=== PATIENT | male | born 1990 | race Caucasian/White ===

== ENCOUNTER 2017-01-24 12:48 | Emergency (ER) | payer SELFPAY ==
[~2017-01-24] VITALS: Ht 170.1 cm; Wt 104.5 kg
[2017-01-24 12:51] VITALS: BP 176/124
== END 2017-01-24 13:56 | disposition home or self-care (01) ==
LOC: ED 12:48
DX: R51 Headache (principal)

== ENCOUNTER → 2017-01-24 | Outpatient (CLI) | payer SELFPAY ==
[~2017-01-24] MED LIST: ANAPROX DS550 MG PO; BACTRIM DS 8001 TA1 PO; CLARITIN10 MG PO; EXCEDRIN 250 MG1 TA1 PO; FLEXERIL10 MG PO; MOTRIN800 MG PO; TRAMADOL HCL50 MG PO; VICODIN 5/500 505 MG PO; ZITHROMAX Z PA250 MG PO
== END | disposition home or self-care (01) ==
LOC: RESCLI 14:29
DX: I10 Essential (primary) hypertension (principal); D49.6 Neoplasm of unspecified behavior of brain; F17.200 Nicotine dependence, unspecified, uncomplicated; Q85.8 Other phakomatoses, not elsewhere classified; Z71.6 Tobacco abuse counseling

== ENCOUNTER → 2017-02-07 | Outpatient (CLI) | payer MEDICAID | END | disposition home or self-care (01) | LOC: RESCLI 02:11 → LAB 02:11 → RESCLI 11:46 | DX: I10 Essential (primary) hypertension (principal) ==

== ENCOUNTER → 2017-02-13 | Outpatient (CLI) | payer MEDICAID ==
[2017-02-14 18:08] LABS: CREATININE, RANDOM URINE 134.9 mg/dL (Not Estab.)
[2017-02-16 11:04] LABS: METANEPH-CREAT RATIO 0.3 (0.0-1.0)
== END | disposition home or self-care (01) ==
LOC: LAB 01:25
PROVIDERS: Internal Medicine
DX: I10 Essential (primary) hypertension (principal)

== ENCOUNTER → 2017-02-21 | Outpatient (CLI) | payer MEDICAID | END | disposition home or self-care (01) | LOC: RESCLI 02:57 | DX: Z09 Encounter for follow-up examination after completed treatment for conditions other than malignant neoplasm (principal); I10 Essential (primary) hypertension; D49.6 Neoplasm of unspecified behavior of brain; J45.20 Mild intermittent asthma, uncomplicated; R00.0 Tachycardia, unspecified; K21.9 Gastro-esophageal reflux disease without esophagitis; E88.81 Metabolic syndrome and other insulin resistance; E66.9 Obesity, unspecified; K76.0 Fatty (change of) liver, not elsewhere classified; K85.90 Acute pancreatitis without necrosis or infection, unspecified; F17.210 Nicotine dependence, cigarettes, uncomplicated ==

== ENCOUNTER 2017-03-13 16:44 | Inpatient (IN) | payer OTHER ==
[~2017-03-13] VITALS: Ht 170.2 cm; Wt 105.9 kg
--- NOTE | ~2017-03-13 | EKG ---
[place], [place] ELECTROCARDIOGRAM REPORT NAME: MAURILIO BEST UNIT #: [id number] ROOM: 521 DOCTOR: SERENE CAMARENA MD BIRTHDATE: [birth year] DOS: 03/13/2017 TIME: 19:02:46. RATE AND RHYTHM: Sinus tachycardia at 107 beats per minute. WY interval 150 milliseconds, QRS duration 93 milliseconds, corrected QT interval 449 milliseconds, QRS axis is 2. IMPRESSION: 1. Sinus tachycardia. 2. Probable left atrial enlargement. 3. Probable left ventricular hypertrophy. 4. This is abnormal EKG. 5. The patient does have underlying ____ disease. SERENE CAMARENA MD CM:EKGRPT:ELECTROCARDIOGRAM REPORT [id number] SERENE CAMARENA MD
[~2017-03-13 16:44] MED LIST changes: -ANBESOL9 G1 T; -DEXAMETHASONE4 MG PO; -HYDR25T PO; -LEVEMIR100 UNIT/1 SQ; -LISINOPRIL10 M1 PO; -NOVOLOG10 ML SC; -NTS1 EACH TD; -OMEPRAZOLE D/R20 MG PO; -PERCOCET 5-3251 EACH PO
[2017-03-13 16:45] VITALS: BP 136/80
[2017-03-13 17:30] LABS: HEMATOCRIT 39.3 % (42.0-52.0); HEMOGLOBIN 14.3 g/dl (14.0-18.0); MEAN CELL VOLUME 83.6 fl (80.0-94.0); MEAN CORPUSCULAR HGB 30.4 pg (27.0-31.0); MEAN CORPUSCULAR HGB CONC 36.4 g/dl (33.0-37.0); MEAN PLATELET VOLUME 9.9 fl (9.6-12.3); PLATELET COUNT AUTOMATED 283 10*3/uL (130-400); WHITE BLOOD COUNT 16.3 10*3/uL (4.8-10.8)
[2017-03-13 17:39] LABS: ACT PARTIAL THROMBO TIME 20.5 SECONDS (20.8-31.5); INTERNATIONAL NORM RATIO 0.9 (2.0-3.5)
[2017-03-13 17:45] LABS: ALBUMIN 3.3 gm/dl (3.1-4.5); ALKALINE PHOSPHATASE 110 U/L (45-117); BUN 22 mg/dl (7-24); CHLORIDE 85 mmol/L (98-107); CREATININE 1.18 mg/dL (0.70-1.30); POTASSIUM 3.4 mmol/L (3.5-5.1); SGOT/AST 23 IU/L (3-35); SODIUM 124 mmol/L (136-145); TOTAL PROTEIN 7.3 gm/dL (6.4-8.2)
[2017-03-13 17:51] LABS: LIPASE 182 U/L (73-393); SGPT/ALT 62 U/L (12-78)
[2017-03-13 18:18] LABS: ATYPICAL LYMPHS 1 % (0-0); PLATELET SUFFICIENCY NORMAL (NORMAL); TOTAL CELLS COUNTED 100 #CELLS
--- NOTE | 2017-03-13 19:38 | NUR ---
PATIENT GIVEN PAIN MEDS STATES FIRST ROUND OF PAIIN MEDS HELPED BUT PAIN HAS RETURNED, WILL REEVAULATED UP RETURN FROM CT
--- NOTE | 2017-03-13 20:13 | NUR ---
REPEAT CRITICAL RESULT GIVEN TO DR HOLGUIN
[2017-03-13 20:14] LABS: BILIRUBIN NEGATIVE (NEGATIVE); BLOOD NEGATIVE (NEGATIVE); CLARITY CLEAR (CLEAR); COLOR YELLOW (YELLOW); GLUCOSE 3+ (NEGATIVE); KETONE NEGATIVE (NEGATIVE); LEUKO ESTERASE NEGATIVE (NEGATIVE); NITRITE NEGATIVE (NEGATIVE); PH 5.5 (5.0-9.0); SPECIFIC GRAVITY <= 1.005 (1.005-1.030); UROBILINOGEN 0.2 E.U./dl (0.2-1.0)
[2017-03-13 20:21] LABS: BACTERIA TRACE; WBC 0-2 wbc/hpf (0-5)
--- NOTE | 2017-03-13 21:22 | NUR ---
BGM AT 237, NOTIFIED DR RICHARDS, VO TO PUT REST OF INSULIN R ON HOLD 88.6 LEFT IN BAG
[2017-03-13 21:44] VITALS: BP 142/72
--- NOTE | 2017-03-13 22:29 | NUR ---
CRITICAL LAB LACTIC ACID OF 4.3 DR. Erick RODRIGUEZ NOTIFIED AT THIS TIME.
[2017-03-13 22:30] VITALS: BP 159/90
--- NOTE | 2017-03-13 22:30 | NUR ---
A 26, admitted to 5E, under the services of Dr. MIUGE CHARLES,[facility] with a diagnosis of UNCONTROLLED DM, ABDOMINAL PAIN. Chief complaint is ABDOMINAL PAIN. Patient arrived via stretcher from ER. Monitor applied. Initial assessment completed. Vital signs taken and recorded. notified of admission to the unit. Orders received. See assessment for past medical history, medications and allergies. Patient and/or family oriented to unit. [address] visitation policy reviewed. Clothing/patient valuable form completed. ESTRELLA SELLERS
[2017-03-13] MEDS ORDERED: HYDR25T PO (22:46)
[2017-03-13] MEDS ORDERED: LISINOPRIL10 M1 PO (22:46)
[2017-03-13] MEDS ORDERED: PERCOCET 5-3251 EACH PO (22:47)
[2017-03-13] MEDS ORDERED: DEXAMETHASONE4 MG PO (22:48)
[2017-03-13] MEDS ORDERED: OMEPRAZOLE D/R20 MG PO (22:49)
[2017-03-13] MEDS ORDERED: NOVOLOG10 ML SC (22:50)
[2017-03-13] MEDS ORDERED: LEVEMIR100 UNIT/1 SQ (22:51)
--- NOTE | 2017-03-13 22:52 | NUR ---
DR. RODRIGUEZ NOTIFIED THAT PATIENT IS HAVING 10/10 HEAD PAIN. NOTIFIED THAT PATIENT TAKES TWO TABLETS OF PERCOCET EVERY 4 HOURS AT HOME. MED REC HAS BEEN UPDATED. DR. RODRIGUEZ STATES SHE IS PUTTING IN ORDERS NOW.
[2017-03-13] MEDS ORDERED: NTS1 EACH TD (22:53)
--- NOTE | 2017-03-14 00:11 | NUR ---
DR. RODRIGUEZ NOTIFIED OF CRITICAL LACTIC ACID.
[2017-03-14 00:25] LABS: BUN 16 mg/dl (7-24); CHLORIDE 93 mmol/L (98-107); CREATININE 0.82 mg/dL (0.70-1.30); POTASSIUM 3.4 mmol/L (3.5-5.1); SODIUM 131 mmol/L (136-145)
--- NOTE | 2017-03-14 00:33 | NUR ---
C/O 10/10 HEAD, MOUTH AND TONGUE PAIN. MEDICATED WITH PRN NORCO ORDERED AND PER PATIENT REQUEST.
--- NOTE | 2017-03-14 01:23 | NUR ---
CONTINUES TO HAVE 10/10 HEAD, MOUTH AND TONGUE PAIN. NORCO INEFFECTIVE. MEDICATED WITH PRN PERCOCET ORDERED AND PER PATIENT REQUEST.
--- NOTE | 2017-03-14 02:20 | NUR ---
PATIENT ASLEEP. NO SIGNS OF PAIN. PERCOCET EFFECTIVE.
--- NOTE | 2017-03-14 02:39 | NUR ---
DR. RODRIGUEZ NOTIFIED OF CRITICAL LACTIC ACID.
[2017-03-14 04:28] LABS: HEMATOCRIT 34.5 % (42.0-52.0); HEMOGLOBIN 12.4 g/dl (14.0-18.0); MEAN CELL VOLUME 84.6 fl (80.0-94.0); MEAN CORPUSCULAR HGB 30.4 pg (27.0-31.0); MEAN CORPUSCULAR HGB CONC 35.9 g/dl (33.0-37.0); MEAN PLATELET VOLUME 9.6 fl (9.6-12.3); PLATELET COUNT AUTOMATED 224 10*3/uL (130-400); RED BLOOD COUNT 4.08 10*6/uL (4.50-5.90); WHITE BLOOD COUNT 13.8 10*3/uL (4.8-10.8)
--- NOTE | 2017-03-14 04:32 | NUR ---
DR. RODRIGUEZ NOTIFIED OF CRITICAL LACTIC ACID.
[2017-03-14 04:40] LABS: BUN 15 mg/dl (7-24); CHLORIDE 96 mmol/L (98-107); CREATININE 0.81 mg/dL (0.70-1.30); POTASSIUM 3.2 mmol/L (3.5-5.1); SODIUM 133 mmol/L (136-145)
[2017-03-14 04:44] LABS: PHOSPHOROUS 1.8 mg/dL (2.5-4.9)
--- NOTE | 2017-03-14 04:44 | NUR ---
MS CONTIN GIVEN ORDERED.
[2017-03-14 04:49] LABS: THYROID STIM HORMONE (HS) 0.609 uIU/ml (0.358-4.75)
[2017-03-14 05:00] LABS: TOTAL CELLS COUNTED 100 #CELLS
[2017-03-14 05:01] LABS: MICROCYTOSIS SLIGHT; PLATELET SUFFICIENCY NORMAL (NORMAL)
--- NOTE | 2017-03-14 05:44 | NUR ---
PATIENT ASLEEP. NO SIGNS OF PAIN. MS CONTIN EFFECTIVE.
[2017-03-14 06:31] LABS: VITAMIN D, 25-HYDROXY 9.4 ng/mL (30-100)
--- NOTE | 2017-03-14 06:37 | NUR ---
DR. RODRIGUEZ NOTIFIED OF CRITICAL LACTIC ACID 3.8
[2017-03-14 08:00] VITALS: BP 152/86
--- NOTE | 2017-03-14 08:00 | NUR ---
Cotton Breeder in to talk to patient. Patient states lives at HOME with GRANDMOTHER AND HIS CHILDREN. There are 4 steps in the home. Physician: DR CAMARENA [facility] [place] Home health services: NONE Patient's level of ADLs: INDEPENDENT Patient has working utilities: YES DME: NONE Follow-up physician's appointment after d/c: PREFERS TO MAKE HIS OWN APPT Does patient want to access PORTAL?: Discharge plan HOME. ALON HANEY
--- NOTE | 2017-03-14 08:05 | NUR ---
PERCOCET GIVEN FOR C/O HEADACHE OF 12/15. WILL CONT TO MONITOR. CALL LIGHT IN REACH.
--- NOTE | 2017-03-14 09:00 | NUR ---
INSULIN DRIP DECREASED PER POLICY DUE TO BS 112.
--- NOTE | 2017-03-14 09:05 | NUR ---
PERCOCET EFF FOR PAIN PER PT. WILL CONT TO MONITOR. CALL LIGHT IN REACH.
--- NOTE | 2017-03-14 09:12 | NUR ---
NOTIFIED DR MELVIN OF LACTIC ACID 3.2 AND NOTIFIED HIM OF RECENT BS RESULTS NEW ORDERS RECEIVED.
--- NOTE | 2017-03-14 10:59 | NUR ---
LACTIC ACID 2.3 DR MELVIN AWARE AND ASKED IF PT COULD TAKE SHOWER PER HIS REQUEST AND HE STATED NOT RIGHT NOW.
[2017-03-14 12:25] LABS: BUN 14 mg/dl (7-24); CHLORIDE 103 mmol/L (98-107); CREATININE 0.57 mg/dL (0.70-1.30); POTASSIUM 3.8 mmol/L (3.5-5.1); SODIUM 137 mmol/L (136-145)
--- NOTE | 2017-03-14 13:04 | NUR ---
PT OFF FLOOR FOR MRI WILL OBTAIN BS UPON RETURN.
--- NOTE | 2017-03-14 13:04 | NUR ---
PT WENT OFF FLOOR FOR MRI. DR MELVIN WAS NOTIFIED AND HE STATED THAT IT WAS OK FOR PT TO COME OFF OF ALL FLUIDS WHILE GETTING MRI.
--- NOTE | 2017-03-14 13:55 | NUR ---
PT RETURNED FROM MRI.
--- NOTE | 2017-03-14 14:00 | NUR ---
PT OFF FLOOR FOR MRI. BS THIS HOUR NOT OBTAINED. WILL OBTAIN UPON RETURN.
--- NOTE | 2017-03-14 14:09 | NUR ---
PERCOCET GIVEN FOR C/O HEADACHE OF 12/15. ALSO INSULIN DRIP INCREASED TO 16UNITS/HR PER ORDERS DUE TO BS 229 AFTER RETURNING FROM MRI.
--- NOTE | 2017-03-14 15:09 | NUR ---
PERCOCET EFF AT THIS TIME FOR C/O PAIN. WILL CONT TO MONITOR. CALL LIGHT IN REACH.
[2017-03-14 16:00] VITALS: BP 153/71
--- NOTE | 2017-03-14 16:23 | NUR ---
PT NONCOMPLIANT WITH 1800ADA DIET. FAMILY BRINGING IN FOOD FROM OUTSIDE.
[2017-03-14 20:00] VITALS: BP 145/80
--- NOTE | 2017-03-14 20:16 | NUR ---
SPOKE TO DR.ALEX CASANOVA AT THIS TIME REGARDING PATIENT'S LEVEMIR SCHEDULED FOR 0. DISCUSSED CURRENT INSULIN GTT RUNNING AT 22 UNITS PER HOUR AND BSG AT 2000 OF 248. PER , OKAY TO GIVE 40 UNITS OF LEVEMIR SCHEDULED. INSTRUCTED TO CONTINUE TO MONITOR BLOOD GLUCOSE Q1H.
--- NOTE | 2017-03-14 20:30 | NUR ---
PT MEDICATED WITH PO PERCOCET PER PRN ORDER FOR C/O HEADACHE R/T BRAIN TUMOR AND ABDOMINAL/SIDE PAIN 10/15. WILL MONITOR EFFECTIVENESS. CALL LIGHT LEFT IN REACH.
--- NOTE | 2017-03-14 21:16 | NUR ---
EARLIER MEDICATION EFFECTIVE PER PATIENT. WILL CONTINUE TO MONITOR. CALL LIGHT LEFT IN REACH.
--- NOTE | 2017-03-14 21:45 | NUR ---
PATIENT CLAIMING HE HAD SOME BLOOD IN STOO. DESCRIBES IT A DARKER RED, BUT NOT BROWN OR BLACK. MADE AWARE OF THIS. NO NEW ORDERS RECEIVED AT THIS TIME. INSTRUCTED TO MONITOR PATIENT FOR ANY FURTHER S/S OF ACTIVE BLEEDING.
--- NOTE | 2017-03-14 22:08 | NUR ---
PATIENT'S BSG 163 AT THIS TIME. RATE CONTINUED AT 23 UNITS PER HOUR. D5 1/2 NS ALSO RESTARTED AT 100 CC/HR INTO IV SITE IN LAC. SQ LEVEMIR ADMINISTERED PER 'S REQUEST.
[2017-03-15] VITALS: BP 138/81
--- NOTE | 2017-03-15 01:57 | NUR ---
PATIENT'S BSG WAS 84. INSULIN GTT DISCONNECTED AT THIS TIME. CALLED REGARDING CURRENT BSG. INSTRUCTED TO D/C INSULIN GTT FOR NOW AND TO RESUME SLIDING SCALE. BSG TO BE RECHECKED IN ONE HOUR.
--- NOTE | 2017-03-15 06:50 | NUR ---
D5 1/2 NS PUT ON HOLD AT THIS TIME DUE TO BSG 285.
[2017-03-15 06:56] LABS: HEMATOCRIT 37.3 % (42.0-52.0); HEMOGLOBIN 13.2 g/dl (14.0-18.0); MEAN CELL VOLUME 86.7 fl (80.0-94.0); MEAN CORPUSCULAR HGB 30.7 pg (27.0-31.0); MEAN CORPUSCULAR HGB CONC 35.4 g/dl (33.0-37.0); MEAN PLATELET VOLUME 9.7 fl (9.6-12.3); PLATELET COUNT AUTOMATED 228 10*3/uL (130-400); RED CELL DISTRI WIDTH 13.7 % (0-14.5); WHITE BLOOD COUNT 20.6 10*3/uL (4.8-10.8)
[2017-03-15 07:17] LABS: PLATELET SUFFICIENCY NORMAL (NORMAL); TOTAL CELLS COUNTED 100 #CELLS
[2017-03-15 07:30] LABS: BUN 15 mg/dl (7-24); CHLORIDE 95 mmol/L (98-107); POTASSIUM 4.2 mmol/L (3.5-5.1); SODIUM 132 mmol/L (136-145)
[2017-03-15 07:32] LABS: CREATININE 0.82 mg/dL (0.70-1.30); PHOSPHOROUS 3.4 mg/dL (2.5-4.9)
[2017-03-15 08:00] VITALS: BP 146/88
--- NOTE | 2017-03-15 08:40 | NUR ---
PATIENT MEDICATED WITH PERCOCET AT THIS TIME PER ORDER AND FOR COMPLAINTS OF HEADACHE 01/15. WILL MONITOR.
--- NOTE | 2017-03-15 09:30 | NUR ---
PER PATIENT, MEDICATION HAS BEEN EFFECTIVE. NO FURTHER COMPLAINTS.
[2017-03-15] MEDS ORDERED: ANBESOL9 G1 T (11:55)
[2017-03-15 12:00] VITALS: BP 140/70
--- NOTE | 2017-03-15 13:15 | NUR ---
Discharge instructions reviewed with patient/family. Patient receptive and verbalizes understanding. Follow-up care arranged. Written instructions given to patient/family. HEPLOCKS REMOVED. PATIENT AMBULATORY OFF FLOOR WITH & GRANDMOTHER. YOVANA COMBS
== END 2017-03-15 13:15 | disposition home or self-care (01) | DRG 699 ==
LOC: ED 16:44 → 5E 21:25 → EDHOLD 21:25 → 5E 21:36
PROVIDERS: Emergency Medicine; Internal Medicine; ADMIT Internal Medicine
DX: N28.89 Other specified disorders of kidney and ureter (principal); K86.2 Cyst of pancreas; R65.10 Systemic inflammatory response syndrome (SIRS) of non-infectious origin without acute organ dysfunction; E83.39 Other disorders of phosphorus metabolism; E09.65 Drug or chemical induced diabetes mellitus with hyperglycemia; E44.1 Mild protein-calorie malnutrition; E87.8 Other disorders of electrolyte and fluid balance, not elsewhere classified; E87.1 Hypo-osmolality and hyponatremia; Q85.8 Other phakomatoses, not elsewhere classified; E83.41 Hypermagnesemia; D49.6 Neoplasm of unspecified behavior of brain; T38.0X5A Adverse effect of glucocorticoids and synthetic analogues, initial encounter; J45.909 Unspecified asthma, uncomplicated; K76.0 Fatty (change of) liver, not elsewhere classified; D64.9 Anemia, unspecified; K14.0 Glossitis; R81 Glycosuria; R00.0 Tachycardia, unspecified; D72.825 Bandemia; E87.6 Hypokalemia; G44.89 Other headache syndrome; I10 Essential (primary) hypertension; F17.200 Nicotine dependence, unspecified, uncomplicated; Z79.899 Other long term (current) drug therapy; Z82.49 Family history of ischemic heart disease and other diseases of the circulatory system; Z84.89 Family history of other specified conditions; Z79.4 Long term (current) use of insulin; Z68.36 Body mass index [BMI] 36.0-36.9, adult; Y92.89 Other specified places as the place of occurrence of the external cause

== ENCOUNTER → 2017-03-13 | Outpatient (CLI) | payer OTHER ==
[~2017-03-13] MED LIST changes: +ANBESOL9 G1 T; +DEXAMETHASONE4 MG PO; +HYDR25T PO; +LEVEMIR100 UNIT/1 SQ; +LISINOPRIL10 M1 PO; +NOVOLOG10 ML SC; +NTS1 EACH TD; +OMEPRAZOLE D/R20 MG PO; +PERCOCET 5-3251 EACH PO
== END | disposition home or self-care (01) ==
LOC: RESCLI 01:55
DX: D49.6 Neoplasm of unspecified behavior of brain (principal); I10 Essential (primary) hypertension; J45.20 Mild intermittent asthma, uncomplicated; R00.0 Tachycardia, unspecified; K21.9 Gastro-esophageal reflux disease without esophagitis; E88.81 Metabolic syndrome and other insulin resistance; E66.9 Obesity, unspecified; K76.0 Fatty (change of) liver, not elsewhere classified; K14.8 Other diseases of tongue; R68.2 Dry mouth, unspecified; Z72.0 Tobacco use

== ENCOUNTER → 2017-04-18 | Outpatient (CLI) | payer OTHER ==
[~2017-04-18] MED LIST changes: +ANBESOL9 G1 T; +DEXAMETHASONE4 MG PO; +GABAPENTIN400 MG PO; +HYDR25T PO; +LEVEMIR100 UNIT/1 SQ; +LISINOPRIL10 M1 PO; +NOVOLOG10 ML SC; +NTS1 EACH TD; +OMEPRAZOLE D/R20 MG PO; +PERCOCET 5-3251 EACH PO
== END | disposition home or self-care (01) ==
LOC: RESCLI 01:02
DX: D49.6 Neoplasm of unspecified behavior of brain (principal); I10 Essential (primary) hypertension; J45.20 Mild intermittent asthma, uncomplicated; R00.0 Tachycardia, unspecified; K21.9 Gastro-esophageal reflux disease without esophagitis; E88.81 Metabolic syndrome and other insulin resistance; E66.9 Obesity, unspecified; K76.0 Fatty (change of) liver, not elsewhere classified; Z72.0 Tobacco use

== ENCOUNTER 2017-04-20 16:35 | Inpatient (IN) | payer OTHER ==
[~2017-04-20] VITALS: Ht 167.6 cm; Wt 95.4 kg
[~2017-04-20 16:35] MED LIST changes: -GABAPENTIN400 MG PO
[2017-04-20 16:42] VITALS: BP 139/95
[2017-04-20 17:20] LABS: HEMOGLOBIN 13.4 g/dl (14.0-18.0); MEAN CELL VOLUME 89.4 fl (80.0-94.0); MEAN CORPUSCULAR HGB 30.7 pg (27.0-31.0); MEAN CORPUSCULAR HGB CONC 34.4 g/dl (33.0-37.0); MEAN PLATELET VOLUME 9.1 fl (9.6-12.3); NUCLEATED RED BLOOD CELL 0.1 10*3/uL (0.0-0.0); NUCLEATED RED BLOOD CELL 0.4 % (0.0-0.0); PLATELET COUNT AUTOMATED 278 10*3/uL (130-400); RED BLOOD COUNT 4.36 10*6/uL (4.50-5.90); RED CELL DISTRI WIDTH 15.2 % (0-14.5); WHITE BLOOD COUNT 22.9 10*3/uL (4.8-10.8)
[2017-04-20 17:35] LABS: ALBUMIN 3.3 gm/dl (3.1-4.5); BUN 19 mg/dl (7-24); CHLORIDE 101 mmol/L (98-107); CREATININE 0.92 mg/dL (0.70-1.30); POTASSIUM 3.6 mmol/L (3.5-5.1); SGOT/AST 33 IU/L (3-35); SGPT/ALT 95 U/L (12-78); SODIUM 139 mmol/L (136-145); TOTAL PROTEIN 7.3 gm/dL (6.4-8.2)
[2017-04-20 17:37] LABS: ALKALINE PHOSPHATASE 100 U/L (45-117)
[2017-04-20 17:47] LABS: POLYCHROMASIA SLIGHT; TOTAL CELLS COUNTED 100 #CELLS
[2017-04-20 17:48] LABS: PLATELET SUFFICIENCY NORMAL (NORMAL)
[2017-04-20 19:36] VITALS: BP 143/93
--- NOTE | 2017-04-20 19:42 | NUR ---
LAB CALLED WITH CRITICAL VALUE OF 2HR LACTIC 8.0.MD NOTIFIED.
--- NOTE | 2017-04-20 19:47 | NUR ---
PATIENT REPORTS RELIEF FROM HIS PAIN. MEDICATION EFFECTIVE.
[2017-04-20 20:35] VITALS: BP 161/100
--- NOTE | 2017-04-20 20:35 | NUR ---
A 26, admitted to 4E, under the services of SHANON Rivera DO with a diagnosis of SIRS, LEUKOCYTOSIS, NECK PAIN ON LEFT SIDE. Chief complaint is NECK PAIN. Patient arrived via stretcher from ER. Monitor applied. Initial assessment completed. Vital signs taken and recorded. SHANON RIVERA DO notified of admission to the unit. Orders received. See assessment for past medical history, medications and allergies. Patient and/or family oriented to unit. Clothing/patient valuable form completed. MERY GUZMAN
--- NOTE | 2017-04-20 21:00 | NUR ---
NOTIFIED DR HOLLIS ANSWERING SERVICE OF NEW CONSULT.
--- NOTE | 2017-04-20 21:25 | NUR ---
PATIENT C/O LEFT SIDED NECK PAIN "GOING ALL THE WAY AROUND THE BACK OF MY NECK INTO MY HEAD" RATES 9/10 ON PAIN SCALE. MEDICATED WITH IV MORPHINE PER PRN ORDERS. WILL MONITOR FOR EFFECTIVENESS. CALL LIGHT WITHIN REACH, BED IN LOW LOCKED POSITION WITH SIDERAILS UP X2 FOR SAFETY. FAMILY AT BEDSIDE WITH PATIENT AT THIS TIME.
--- NOTE | 2017-04-20 21:39 | NUR ---
SPOKE WITH DR CHRISTY WITH INFECTIOUS DISEASE AND RECEIVED ORDERS TO OBTAIN A UA AND URINE CULTURE, PERFORM A POST VOID BLADDER SCAN AND IF RESIDUAL > [address] PL[address] A FERRERA CATHETER. ALSO RECEIVED ANTIBIOTIC ORDERS OF VANCOMYCIN AND CEFEPIME. DR CHRISTY ALSO RECOMMEND PATIENT GET A CT OF HEAD AT THIS TIME AND POSSIBLY NEED TRANSFER TO [facility]. SPOKE WITH DR DURHAM WHO STATES WILL ORDER HEAD CT AT THIS TIME WITH NO PLANS OF TRANSFERRING PATIENT AT THIS TIME.
--- NOTE | 2017-04-20 23:01 | NUR ---
[facility] CALLED AND STATED THAT THE PATIENTS FINDINGS ON HIS HEAD CT WERE CRITICAL AND SHOWED POSSIBLE OCCIPITL CSF COLLECTION AND A SUBDURAL [address]MM H[address] DR[address] DURHAM CALLED AND NOTIFIED. NO CONCERNS FROM THE DOCTOR AT THIS TIME.
[2017-04-20] MEDS ORDERED: GABAPENTIN400 MG PO (23:31)
--- NOTE | 2017-04-20 23:34 | NUR ---
REVIEWED PATIENT MED REC AND VERIFIED HOME MEDS WITH PATIENT RANJAN. PATIENT USES [facility] IN [place] IF FURTHER VERIFICATION NEEDED.
--- NOTE | 2017-04-20 23:36 | NUR ---
NORCO GIVEN PER ORDER FOR HEADACHE PAIN RATED "9-10". PT. ALERT AND ORIENTED X3 AT THIS TIME. FAMILY AT BEDSIDE.
[2017-04-21] VITALS (8 sets, daily range): BP systolic 133–148; BP diastolic 74–90
[2017-04-21 00:04] LABS: BILIRUBIN NEGATIVE (NEGATIVE); BLOOD NEGATIVE (NEGATIVE); CLARITY CLEAR (CLEAR); COLOR YELLOW (YELLOW); GLUCOSE NEGATIVE (NEGATIVE); KETONE NEGATIVE (NEGATIVE); LEUKO ESTERASE NEGATIVE (NEGATIVE); NITRITE NEGATIVE (NEGATIVE); PH 5.5 (5.0-9.0); SPECIFIC GRAVITY <= 1.005 (1.005-1.030); UROBILINOGEN 0.2 E.U./dl (0.2-1.0)
--- NOTE | 2017-04-21 00:10 | NUR ---
UP TO BATHROOM VOIDED. BLADDER SCAN DONE PER ORDER 161CC FERRERA NOT NEEDED.
[2017-04-21 00:11] LABS: BACTERIA TRACE; EPITHELIAL CELLS 0-2; WBC 0-2 wbc/hpf (0-5)
--- NOTE | 2017-04-21 00:30 | NUR ---
HARSHAL HELPING A LITTLE FOR HEADACHE PER PT. RATED PAIN "8".
--- NOTE | 2017-04-21 00:40 | NUR ---
ALERT SITTING UP IN BED NO ACUTE DISTRESS NOTED. HR 96 BPM. PT. JOKING WITH FAMILY AND NURSE.
--- NOTE | 2017-04-21 01:25 | NUR ---
MORPHINE GIVEN PER ORDER FOR NECK PAIN RATED "8" PER PT. SEE MAR.
--- NOTE | 2017-04-21 01:50 | NUR ---
PT. ALERT LAYING ON LEFT SIDE. NO C/O H/A JUST LEFT SIDED NECK PAIN. WANTING TO GO TO SLEEP. NO ACUTE DISTRESS NOTED. BP TAKEN AND RECORDED. NEURO CHECK ASYMPT. AT THIS TIME.
--- NOTE | 2017-04-21 03:17 | NUR ---
UP TO BATHROOM VOIDED CLEAR YELLOW URINE. MILD DISCOMFORT AT THIS TIME. PT. STILL ALERT AND ORIENTED GAIT STEADY SPEECH CLEAR. FAMILY AT BEDSIDE.
--- NOTE | 2017-04-21 04:46 | NUR ---
C/O LEFT SIDE NECK PAIN RATED "8" NO H/A AT THIS TIME. NORCO GIVEN PER ORDER. SEE MAR.
--- NOTE | 2017-04-21 05:48 | NUR ---
NORCO NOT EFFECTIVE FOR PAIN. MORPHINE GIVEN PER ORDER FOR LEFT SIDE NECK PAIN RATED "HURTS REAL BAD LIKE 9". SEE JUL. BSG 108 NO INSUIN COVERAGE GIVEN. PT. CONDITION STABLE AT THIS TIME.
[2017-04-21 06:16] LABS: HEMATOCRIT 34.4 % (42.0-52.0); HEMOGLOBIN 11.6 g/dl (14.0-18.0); MEAN CELL VOLUME 90.5 fl (80.0-94.0); MEAN CORPUSCULAR HGB 30.5 pg (27.0-31.0); MEAN CORPUSCULAR HGB CONC 33.7 g/dl (33.0-37.0); MEAN PLATELET VOLUME 9.2 fl (9.6-12.3); NUCLEATED RED BLOOD CELL 0.1 10*3/uL (0.0-0.0); NUCLEATED RED BLOOD CELL 0.4 % (0.0-0.0); PLATELET COUNT AUTOMATED 209 10*3/uL (130-400); RED CELL DISTRI WIDTH 15.4 % (0-14.5)
[2017-04-21 06:29] LABS: ALBUMIN 2.7 gm/dl (3.1-4.5); BUN 16 mg/dl (7-24); CHLORIDE 102 mmol/L (98-107); CREATININE 0.58 mg/dL (0.70-1.30); PHOSPHOROUS 2.4 mg/dL (2.5-4.9); POTASSIUM 3.8 mmol/L (3.5-5.1); SGOT/AST 31 IU/L (3-35); SGPT/ALT 88 U/L (12-78); SODIUM 140 mmol/L (136-145)
[2017-04-21 06:30] LABS: ALKALINE PHOSPHATASE 75 U/L (45-117); TOTAL PROTEIN 5.8 gm/dL (6.4-8.2)
--- NOTE | 2017-04-21 06:44 | NUR ---
DR. DURHAM NOTIFIED OF PT. CONDITION AND WANTING SOMETHING FOR THE ITCHING OF THE SCALP YESICA FROM A SURGERY IN
[2017-04-21 07:02] LABS: ACT PARTIAL THROMBO TIME 20.7 SECONDS (19.5-32.1); INTERNATIONAL NORM RATIO 0.9 (2.0-3.5)
[2017-04-21 07:22] LABS: ATYPICAL LYMPHS 3 % (0-0); PLATELET SUFFICIENCY NORMAL (NORMAL); POLYCHROMASIA SLIGHT; TOTAL CELLS COUNTED 100 #CELLS; TOXIC GRANULATION SLIGHT
--- NOTE | 2017-04-21 08:00 | NUR ---
Time Piece Repairer in to talk to patient. Patient states lives at HOME with HIS GRANDMOTHER AND FAMILY. There are 4 steps in the home. Physician: [facility]acy: [facility] [place] Home health services: NONE Patient's level of ADLs: INDEPENDENT Patient has working utilities: YES DME: NONE Follow-up physician's appointment after d/c: WILL BE MADE PRIOR TO DC Does patient want to access PORTAL?: Discharge plan HOME. ALON HANEY 2 FAMILY MEMBERS PRESENT. PT NOT FEELING WELL. FAMILY DENIES DC NEEDSY
--- NOTE | 2017-04-21 08:38 | NUR ---
MORPHINE GIVEN ORDERED BY DR HOLDEN AT THIS TIME. FOR C/O NECK PAIN OF 01/15. WILL CONT TO MONITOR. CALL LIGHT IN REACH. FAMILY AT BEDSIDE.
--- NOTE | 2017-04-21 09:32 | NUR ---
PT SLEEPING AT THIS TIME. MORPHINE EFF. WILL CONT TO MONITOR. CALL LIGHT IN REACH. FAMILY AT BEDSIDE.
[2017-04-21] MEDS ORDERED: PERCOCET 7.5-31 EACH PO (09:49)
--- NOTE | 2017-04-21 09:49 | NUR ---
PERCOCET ORDERED CLARIFIED WITH DR RODRIGUEZ.
--- NOTE | 2017-04-21 09:49 | NUR ---
CLARIFIED HOME DOSE OF PERCOCET WITH DR RODRIGUEZ AND MED REC WAS UPDATED.
--- NOTE | 2017-04-21 10:19 | NUR ---
NORCO GIVEN FOR C/O HEADACHE OF 01/15. WILL CONT TO MONITOR.
--- NOTE | 2017-04-21 11:19 | NUR ---
PT STATED THAT NORCO WAS INEFF. DR CLAUDIO NOTIFIED PT WAS REQUESTING HOME MEDS INCLUDING PERCOCET.
--- NOTE | 2017-04-21 12:00 | NUR ---
C/O PAIN OF 8/10 TO HEAD. PERCOCET GIVEN AT THIS TIME ORDERED. WILL CONT TO MONITOR. CALL LIGHT IN REACH.
--- NOTE | 2017-04-21 13:00 | NUR ---
PT RESTING QUIETLY.
--- NOTE | 2017-04-21 14:34 | NUR ---
RAJNI RECIEVED FROM [facility] ([phone]) INQUIRING IF PT WAS STILL HERE. SW RETURNED CALL TO KAVEH. PT STIL IN HOSPITAL BUT IS CONSIDERING SENDING PT BACK TO [facility] TO WHERE HE HAD SURGERY.
--- NOTE | 2017-04-21 14:45 | NUR ---
PT REQUESTED IV MORPHINE FOR C/O HEADACHE OF 12/15. WILL CONT TO MONITOR. CALL LIGHT IN REACH.
--- NOTE | 2017-04-21 14:59 | NUR ---
PT REQUESTING TO BE DISCHARGED. DR CALDWELL NOTIFIED.
--- NOTE | 2017-04-21 15:35 | NUR ---
PT DISCHARGED AGAINST MEDICAL ADVICE PER DR CASANOVA. IV REMOVED AND PRESSURE DRESSING APPLIED. HEART MONITOR RETURNED TO FLOOR. WAS ADVISED TO SEE NEUROSURGEON.
== END 2017-04-21 15:35 | disposition left against medical advice (07) | DRG 872 ==
LOC: ED 16:35 → 4E 19:58 → EDHOLD 19:58 → 4E 20:07
PROVIDERS: Family Medicine; Internal Medicine Infectious Disease; Nurse Practitioner Family; ADMIT Emergency Medicine
DX: A41.9 Sepsis, unspecified organism (principal); K86.2 Cyst of pancreas; E44.1 Mild protein-calorie malnutrition; K76.0 Fatty (change of) liver, not elsewhere classified; E11.65 Type 2 diabetes mellitus with hyperglycemia; Q85.8 Other phakomatoses, not elsewhere classified; D64.9 Anemia, unspecified; R65.20 Severe sepsis without septic shock; E78.00 Pure hypercholesterolemia, unspecified; Z53.21 Procedure and treatment not carried out due to patient leaving prior to being seen by health care provider; J45.909 Unspecified asthma, uncomplicated; I10 Essential (primary) hypertension; K21.9 Gastro-esophageal reflux disease without esophagitis; Z87.891 Personal history of nicotine dependence; Z79.4 Long term (current) use of insulin; Z82.49 Family history of ischemic heart disease and other diseases of the circulatory system; Z81.8 Family history of other mental and behavioral disorders; Z68.33 Body mass index [BMI] 33.0-33.9, adult

== ENCOUNTER → 2017-04-25 | Outpatient (CLI) | payer OTHER ==
[~2017-04-25] MED LIST changes: +GABAPENTIN400 MG PO; +PERCOCET 7.5-31 EACH PO
== END | disposition home or self-care (01) ==
LOC: RESCLI 02:12
DX: Z09 Encounter for follow-up examination after completed treatment for conditions other than malignant neoplasm (principal); I10 Essential (primary) hypertension; K21.9 Gastro-esophageal reflux disease without esophagitis; D49.6 Neoplasm of unspecified behavior of brain; E88.81 Metabolic syndrome and other insulin resistance; F41.9 Anxiety disorder, unspecified; G47.01 Insomnia due to medical condition; R00.0 Tachycardia, unspecified; J45.909 Unspecified asthma, uncomplicated; K14.8 Other diseases of tongue; R68.2 Dry mouth, unspecified; Z72.0 Tobacco use

== ENCOUNTER → 2017-05-17 | Outpatient (CLI) | payer OTHER | END | disposition home or self-care (01) | LOC: RESCLI 02:12 | DX: K21.9 Gastro-esophageal reflux disease without esophagitis (principal); D49.6 Neoplasm of unspecified behavior of brain; I10 Essential (primary) hypertension; D18.1 Lymphangioma, any site; G91.9 Hydrocephalus, unspecified; G93.5 Compression of brain; R13.10 Dysphagia, unspecified; E66.01 Morbid (severe) obesity due to excess calories; R00.0 Tachycardia, unspecified; J45.909 Unspecified asthma, uncomplicated; Z98.890 Other specified postprocedural states ==

== ENCOUNTER → 2017-06-13 | Outpatient (CLI) | payer OTHER ==
--- NOTE | ~2017-06-13 | PROC NOTE ---
[place], [place] PROCEDURE NOTE NAME: MAURILIO BEST [facility] #: [id number] UNIT #: [id number] ROOM: DOCTOR: RIMA LOPEZ BIRTHDATE: [birth year] DOS: 06/13/2017 MODIFIED BARIUM SWALLOW. ORDERING PHYSICIAN: Dr. Romano. RADIOLOGIST: Dr. Beckett. BACKGROUND INFORMATION: The patient, a 26-year-old male was seen for modified barium swallow. This test was ordered to determine candidacy for resumption of p.o. feeding and assess progress. This patient is known to the clinician as he has been receiving home health dysphagia therapy. 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 Further medical history includes DM, HTN, asthma, PEG tube, GERD and anxiety. This patient is currently n.p.o. He has a tube feed for his primary oral intake, but he does admit that he is anxious to have the tube removed and does try to eat by mouth. He states that he does experience difficulty when trying to eat by mouth with foods sticking. During hospitalization in [place], the patient did undergo modified barium swallows, the most recent was performed 06/03/2017. At that time, the patient exhibited reduced base of tongue retraction resulting in premature spillage to the level of the pyriforms with thin liquid and to the vallecula with nectar thick and pureed consistencies before the swallow, laryngeal penetration occurred with thin liquid, nectar and honey-thick liquids during the swallow with reduced laryngeal elevation and anterior excursion. Silent aspiration occurred with thin and nectar thick liquids due to pharyngeal residue. The patient was recommended to continue with n.p.o. status. At the current time, the patient has been showing progress with therapy; therefore, this repeat study is being conducted. For today's study, the patient was alert and able to follow commands. Oral peripheral examination revealed presence of natural teeth which were in good condition. Lingual, labial, and buccal skills were within normal limits in terms of strength, range of motion, and coordination. Volitional cough was weak. Volitional swallow was adequate. The patient did display a hoarse vocal quality. Respiratory status was within normal limits. METHODS AND MATERIALS USED FOR THE EXAM: The patient was positioned in the lateral plane and the exam was viewed under fluoroscopy. The patient was presented with a variety of consistencies to assess swallowing skills including applesauce mixed with barium presented in half teaspoon amounts, barium-coated cookie and sandwich given in bite size pieces and thin liquid barium taken by cup. ORAL PHASE: The patient achieved adequate labial seal around cup and spoon with no anterior loss. Bolus formation and transit were adequate. Tongue to palate contact was adequate. Tongue to posterior pharyngeal wall contact was mildly impaired with puree and moderately impaired with solids. Velar functioning was within normal limits with no nasal regurgitation. PHARYNGEAL PHASE: The pharyngeal swallow occurred within a timely manner. [place], [place] PROCEDURE NOTE NAME: MAURILIO BEST UNIT #: [id number] ROOM: DOCTOR: RIMA LOPEZ BIRTHDATE: [birth year] Laryngeal elevation and epiglottic function were within normal limits. No penetration or aspiration occurred with any consistency. Following the swallow with pureed consistency, a mild amount of pooling occurred in the pyriform sinus. The patient was aware of the residue and was able to clear it with subsequent swallow. When he consumed solids, a mild to moderate amount of pooling occurred in the pyriforms and the vallecula. He was not always aware of this residue to independently clear it, but when cued, he was able to clear this with a re-swallow or liquid wash. ESOPHAGEAL PHASE: This phase of the swallow was not formally assessed during this exam. IMPRESSIONS AND RECOMMENDATIONS: Based upon assessment results, this 26-year-old patient presents with a [id number]-za-nuobiqro oropharyngeal dysphagia. Tongue to posterior pharyngeal contact was reduced resulting in pooling in the vallecula and pyriforms. This residue did clear with re-swallow or liquid wash. No penetration or aspiration occurred with any consistency. It is recommended that this patient begin oral intake with soft foods and thin liquids due to the progress he has displayed since his prior modified barium swallow study. Recommend adherence to safe swallow precautions such as double swallows after every bite of food and alternating liquids and solids. Continued dysphagia therapy is recommended to further strengthen pharyngeal muscles to ensure safe swallow of oral intake. The patient is scheduled for a followup appointment with his physician today. It was recommended that he discuss possible change in tube feeding amounts in order to allow him to take in more by mouth as he reports that he is often not hungry and gets ill from the tube feedings. Results and recommendations of today's assessment were shared with the patient, his and mother and a written copy of recommendations was provided. Also discussed with them recommendation for referral to ENT to rule out etiology of the patient's vocal hoarseness. The patient's spouse reported that his vocal quality is slowly improving and since they have so upcoming doctor appointments, she would like to wait and see if his vocal quality improves on its own. The patient and family verbalized understanding of all information provided. Thank you very much for this referral. Should you have any questions regarding this patient, please contact the speech pathologist at [phone]. RIMA LOPEZ [place], [place] PROCEDURE NOTE NAME: MAURILIO BEST UNIT #: [id number] ROOM: DOCTOR: RIMA LOPEZ BIRTHDATE: [birth year] SHANON ROMANO DO CM:PROCNOTE:PROCEDURE NOTE [id number] RIMA LOPEZ
--- NOTE | ~2017-06-13 | SLPPOC ---
[place], [place] GREENSTONE POLISHER OPERATOR PLAN OF CARE NAME: MAURILIO BEST UNIT #: [id number] ROOM: DOCTOR: SERENE CAMARENA MD Speech Language Pathology Plan of Care Page 1 1 (Initial Evaluation) of Patient Name: MAURILIO BEST Date: 06/13/2017 10:59 AM : 1990 SOC Date: 06/13/2017 Provider: [facility] Provider #: [id number] Treating Clinician: MINDA Friedman-GREENSTONE POLISHER OPERATOR Referring Physician: SERENE CAMARENA 1 Visits From SOC: Onset Date Description Code Primary Diagnosis: 06/06/2017 A0000 NO DIAGNOSIS SENT TO THE [facility] INTERFACE Subjective Comments: Initial evaluation created to initiate the electronic medical record. Please see [facility] for details. Initial Level Goals Functional Limitation Reporting Swallowing G8996 - Swallowing functional limitation, current status at therapy episode outset and at reporting intervals Current Status: CJ - At least 20 percent but less than 40 percent impaired, limited or restricted G8997 - Swallowing functional limitation, projected goal status, at therapy episode outset, at reporting intervals, and at discharge or to end reporting Goal Status: CJ - At least 20 percent but less than 40 percent impaired, limited or restricted G8998 - Swallowing functional limitation, discharge status, at discharge from therapy or to end reporting Discharge Status: CJ - At least 20 percent but less than 40 percent impaired, limited or restricted 06/13/2017 11:00:31 AM SERENE CAMARENA Date/Time CAROL FriedmanGREENSTONE POLISHER OPERATOR Date I certify the need for these services furnished under this plan of treatment while under my care. State License #: [id number] CM:SLPPOC [id number] 1101 IS THERAPY RED
--- NOTE | ~2017-06-13 | SLPPN ---
[place], [place] DOUBLE BACK OPERATOR PROGRESS NOTE NAME: MAURILIO BEST UNIT #: [id number] ROOM: DOCTOR: SERENE CAMARENA MD Speech Language Pathology Treatment Note Page 1 1 of Patient Name: MAURILIO BEST Date: 06/13/2017 11:01 AM : 1990 SOC Date: 06/13/2017 Provider: [facility] Provider #: [id number] Treating Clinician: MINDA Friedman-AKASH Referring Physician: SERENE CAMARENA Onset Date Description Code Primary Diagnosis: 06/06/2017 A0000 NO DIAGNOSIS SENT TO THE [facility] INTERFACE Time In: 10:00 AM Time Out: 11:00 AM DOUBLE BACK OPERATOR Interventions and CPT Codes Consisted of: CPT Code Modifiers Minutes Units MOTION FLUOROSCOPY/SWALLOW 76495 60 1 Total Minutes: 60 Total Timed Minutes: 0 Total Untimed Minutes: 60 Total Units: 1 Total Timed Units: 0 Total Untimed Units: 1 06/13/2017 11:02:19 AM EMELY Friedman Date/Time State License #: [id number] CM:AILYN 1106 1106 IS THERAPY RED
--- NOTE | ~2017-06-13 | SLPIE ---
[place], [place] CAMPUS ADMINISTRATOR INITIAL EVALUATION NAME: MAURILIO BEST UNIT #: [id number] ROOM: DOCTOR: SERENE CAMARENA MD Speech Language Pathology Initial Evaluation Page 1 1 of Patient Name: MAURILIO BEST Date: 06/13/2017 10:59 AM : 1990 SOC Date: 06/13/2017 Provider: [facility] Provider #: [id number] Treating Clinician: MINDA Friedman-CAMPUS ADMINISTRATOR Referring Physician: SERENE CAMARENA Patient Information Address: [place] [address] Physician: SERENE CAMARENA [address] [employer] MANAGER Physician #: City, [facility], Zip: [place], [place] [address] Occupation: Unknown # of Approved Visits: 0 Gender: Male Records Management Clerk: KAY ESTEPHANIA Rehabilitation Information / History Onset Date Code Description Primary Diagnosis: 06/06/2017 A0000 NO DIAGNOSIS SENT TO THE [facility] INTERFACE Subjective Comments: Initial evaluation created to initiate the electronic medical record. Please see EQAL for details. Rehabilitation Information / History Clinical Findings Functional Goals Functional Limitation Reporting Swallowing G8996 - Swallowing functional limitation, current status at therapy episode outset and at reporting intervals Current Status: CJ - At least 20 percent but less than 40 percent impaired, limited or restricted G8997 - Swallowing functional limitation, projected goal status, at therapy episode outset, at reporting intervals, and at discharge or to end reporting Goal Status: CJ - At least 20 percent but less than 40 percent impaired, limited or restricted G8998 - Swallowing functional limitation, discharge status, at discharge from therapy or to end reporting Discharge Status: CJ - At least 20 percent but less than 40 percent impaired, limited or restricted 06/13/2017 11:00:31 AM MINDA Friedman-AKASH Date/Time [place], [place] CAMPUS ADMINISTRATOR INITIAL EVALUATION NAME: MAURILIO BEST UNIT #: [id number] ROOM: DOCTOR: SERENE CAMARENA MD [facility] License #: [id number] CM:SLPIE 1101 1101 IS THERAPY [facility]
== END | disposition home or self-care (01) ==
LOC: RAD/SH 00:32
DX: R13.10 Dysphagia, unspecified (principal)

== ENCOUNTER → 2017-06-20 | Outpatient (CLI) | payer OTHER | END | disposition home or self-care (01) | LOC: RESCLI 03:13 | DX: I10 Essential (primary) hypertension (principal); K21.9 Gastro-esophageal reflux disease without esophagitis; D49.6 Neoplasm of unspecified behavior of brain; K59.03 Drug induced constipation; Z93.1 Gastrostomy status ==

== ENCOUNTER → 2017-06-27 | Outpatient (CLI) | payer OTHER ==
[2017-06-27 11:55] LABS: BILIRUBIN NEGATIVE (NEGATIVE); BLOOD NEGATIVE (NEGATIVE); CLARITY CLEAR (CLEAR); COLOR YELLOW (YELLOW); GLUCOSE NEGATIVE (NEGATIVE); KETONE NEGATIVE (NEGATIVE); LEUKO ESTERASE NEGATIVE (NEGATIVE); NITRITE NEGATIVE (NEGATIVE); PH 7.5 (5.0-9.0); UROBILINOGEN 0.2 E.U./dl (0.2-1.0)
[2017-06-27 12:33] LABS: BACTERIA TRACE; EPITHELIAL CELLS 0-2; MUCOUS 2+; WBC 0-2 wbc/hpf (0-5)
[2017-06-28 22:05] LABS: GONOCOCCUS BY NAA Negative (Negative)
== END | disposition home or self-care (01) ==
LOC: RESCLI 03:50
PROVIDERS: Internal Medicine
DX: I10 Essential (primary) hypertension (principal); D49.6 Neoplasm of unspecified behavior of brain; M62.838 Other muscle spasm; R30.0 Dysuria; Q85.8 Other phakomatoses, not elsewhere classified; K21.9 Gastro-esophageal reflux disease without esophagitis; K59.03 Drug induced constipation; R00.0 Tachycardia, unspecified; Z93.1 Gastrostomy status

== ENCOUNTER → 2017-06-28 | Outpatient (CLI) | payer OTHER | END | disposition home or self-care (01) | LOC: CT 01:25 | DX: M54.2 Cervicalgia (principal); R51 Headache; R13.10 Dysphagia, unspecified ==

== ENCOUNTER → 2017-07-05 | Outpatient (CLI) | payer OTHER | END | disposition home or self-care (01) | LOC: RESCLI 07-04 02:18 | DX: K21.9 Gastro-esophageal reflux disease without esophagitis (principal); D49.6 Neoplasm of unspecified behavior of brain; M62.838 Other muscle spasm; I10 Essential (primary) hypertension; K59.03 Drug induced constipation; Q85.8 Other phakomatoses, not elsewhere classified; T88.8XXD Other specified complications of surgical and medical care, not elsewhere classified, subsequent encounter; E66.9 Obesity, unspecified; R00.0 Tachycardia, unspecified; R10.84 Generalized abdominal pain; Z93.1 Gastrostomy status; Z87.891 Personal history of nicotine dependence ==

== ENCOUNTER → 2017-07-17 | Outpatient (CLI) | payer OTHER | END | disposition home or self-care (01) | LOC: RESCLI 02:19 | DX: I10 Essential (primary) hypertension (principal); D49.6 Neoplasm of unspecified behavior of brain; M62.838 Other muscle spasm; K21.9 Gastro-esophageal reflux disease without esophagitis; K59.03 Drug induced constipation; R29.818 Other symptoms and signs involving the nervous system; R10.84 Generalized abdominal pain; R00.0 Tachycardia, unspecified; E66.9 Obesity, unspecified; T88.8XXD Other specified complications of surgical and medical care, not elsewhere classified, subsequent encounter; Z87.891 Personal history of nicotine dependence ==

== ENCOUNTER → 2017-07-19 | Outpatient (CLI) | payer OTHER ==
[~2017-07-19] MED LIST changes: +CYCLOBENZAPRINE10 MG PO; +LOPRESSOR25 MG PO; +[UNRECOGNIZED DRUG - OTHER] NAS
== END | disposition home or self-care (01) ==
LOC: CT 00:32
DX: N28.1 Cyst of kidney, acquired (principal); K59.00 Constipation, unspecified; Q85.8 Other phakomatoses, not elsewhere classified

== ENCOUNTER → 2017-08-02 | Outpatient (CLI) | payer OTHER ==
[2017-08-02 09:57] VITALS: BP 140/99
[2017-08-02 13:14] LABS: BF LYMPHOCYTES 68 %; BF MACROPHAGES 27 %
[2017-08-02 13:16] LABS: BODY FLUID WBC 308 /uL
== END | disposition home or self-care (01) ==
LOC: SDC 07-26 03:03 → EDSTATUS 07-26 10:00 → RAD 01:30
PROVIDERS: Internal Medicine
DX: T88.8XXD Other specified complications of surgical and medical care, not elsewhere classified, subsequent encounter (principal); I10 Essential (primary) hypertension; K21.9 Gastro-esophageal reflux disease without esophagitis; K59.03 Drug induced constipation; R10.84 Generalized abdominal pain; J45.909 Unspecified asthma, uncomplicated; Z98.890 Other specified postprocedural states; Z82.49 Family history of ischemic heart disease and other diseases of the circulatory system; Z87.891 Personal history of nicotine dependence; Z79.899 Other long term (current) drug therapy

== ENCOUNTER → 2017-08-15 | Outpatient (CLI) | payer OTHER | END | disposition home or self-care (01) | LOC: RESCLI 04:01 | DX: I10 Essential (primary) hypertension (principal); J45.909 Unspecified asthma, uncomplicated; D49.6 Neoplasm of unspecified behavior of brain; M62.838 Other muscle spasm; K21.9 Gastro-esophageal reflux disease without esophagitis; K59.03 Drug induced constipation; Z87.891 Personal history of nicotine dependence ==

== ENCOUNTER → 2017-09-06 | Outpatient (CLI) | payer OTHER | END | disposition home or self-care (01) | LOC: RESCLI 02:04 | DX: I10 Essential (primary) hypertension (principal); K21.9 Gastro-esophageal reflux disease without esophagitis; M62.838 Other muscle spasm; K59.03 Drug induced constipation; D49.6 Neoplasm of unspecified behavior of brain; F33.1 Major depressive disorder, recurrent, moderate; R00.0 Tachycardia, unspecified; Q85.8 Other phakomatoses, not elsewhere classified; Z87.891 Personal history of nicotine dependence ==

== ENCOUNTER → 2017-10-04 | Outpatient (CLI) | payer OTHER | END | disposition home or self-care (01) | LOC: RESCLI 03:17 | DX: F33.1 Major depressive disorder, recurrent, moderate (principal); D49.6 Neoplasm of unspecified behavior of brain; M62.838 Other muscle spasm; I10 Essential (primary) hypertension; K21.9 Gastro-esophageal reflux disease without esophagitis; K59.03 Drug induced constipation; C64.2 Malignant neoplasm of left kidney, except renal pelvis; C64.1 Malignant neoplasm of right kidney, except renal pelvis; R00.0 Tachycardia, unspecified; E66.9 Obesity, unspecified; Z87.891 Personal history of nicotine dependence ==

== ENCOUNTER → 2017-10-30 | Outpatient (CLI) | payer OTHER | END | disposition home or self-care (01) | LOC: RESCLI 09:33 | DX: I10 Essential (primary) hypertension (principal); C64.2 Malignant neoplasm of left kidney, except renal pelvis; K21.9 Gastro-esophageal reflux disease without esophagitis; D49.6 Neoplasm of unspecified behavior of brain; M62.838 Other muscle spasm; J45.909 Unspecified asthma, uncomplicated; F33.1 Major depressive disorder, recurrent, moderate; K59.03 Drug induced constipation; Q85.8 Other phakomatoses, not elsewhere classified; Z87.891 Personal history of nicotine dependence ==

== ENCOUNTER → 2017-11-17 | Outpatient (CLI) | payer OTHER | END | disposition home or self-care (01) | LOC: RESCLI 04:25 | DX: K21.9 Gastro-esophageal reflux disease without esophagitis (principal); I10 Essential (primary) hypertension; M62.838 Other muscle spasm; K59.03 Drug induced constipation; C64.2 Malignant neoplasm of left kidney, except renal pelvis; D49.6 Neoplasm of unspecified behavior of brain; Q85.8 Other phakomatoses, not elsewhere classified; R00.0 Tachycardia, unspecified; R03.0 Elevated blood-pressure reading, without diagnosis of hypertension; Z79.899 Other long term (current) drug therapy; Z88.8 Allergy status to other drugs, medicaments and biological substances; Z87.891 Personal history of nicotine dependence ==

== ENCOUNTER → 2017-11-27 | Outpatient (CLI) | payer OTHER | END | disposition home or self-care (01) | LOC: RESCLI 08:03 | DX: D49.6 Neoplasm of unspecified behavior of brain (principal); M62.838 Other muscle spasm; K59.03 Drug induced constipation; C64.2 Malignant neoplasm of left kidney, except renal pelvis; I10 Essential (primary) hypertension; K21.9 Gastro-esophageal reflux disease without esophagitis; R00.0 Tachycardia, unspecified; R10.32 Left lower quadrant pain; E66.01 Morbid (severe) obesity due to excess calories; Z98.2 Presence of cerebrospinal fluid drainage device; Z79.899 Other long term (current) drug therapy; Z87.891 Personal history of nicotine dependence; Z88.8 Allergy status to other drugs, medicaments and biological substances ==

== ENCOUNTER → 2018-01-23 | Outpatient (CLI) | payer OTHER | END | disposition home or self-care (01) | LOC: RESCLI 04:26 → ORTHO 04:26 → RESCLI 15:43 → ORTHO 16:39 | DX: K21.9 Gastro-esophageal reflux disease without esophagitis (principal); D46.9 Myelodysplastic syndrome, unspecified; C64.2 Malignant neoplasm of left kidney, except renal pelvis; K59.03 Drug induced constipation; M62.838 Other muscle spasm; I10 Essential (primary) hypertension; L23.9 Allergic contact dermatitis, unspecified cause; G47.01 Insomnia due to medical condition; J45.20 Mild intermittent asthma, uncomplicated; F17.200 Nicotine dependence, unspecified, uncomplicated; Z79.899 Other long term (current) drug therapy; Z88.8 Allergy status to other drugs, medicaments and biological substances ==

== ENCOUNTER → 2018-02-07 | Outpatient (CLI) | payer OTHER ==
[2018-02-07 12:57] LABS: BASO % 0.4 % (0.0-1.0); EOS # 0.5 10*3/uL (0.0-0.4); EOS % 5.3 % (1.0-4.0); HEMATOCRIT 50.4 % (42.0-52.0); HEMOGLOBIN 16.9 g/dl (14.0-18.0); LYMPH # 3.1 10*3/uL (1.3-4.4); LYMPH % 31.1 % (27.0-41.0); MEAN CELL VOLUME 87.3 fl (80.0-94.0); MEAN CORPUSCULAR HGB 29.3 pg (27.0-31.0); MEAN CORPUSCULAR HGB CONC 33.5 g/dl (33.0-37.0); MONO # 0.8 10*3/uL (0.1-1.0); MONO % 8.3 % (3.0-9.0); NEUT # 5.4 10*3/uL (2.3-7.9); NEUT % 54.5 % (47.0-73.0); PLATELET COUNT AUTOMATED 270 10*3/uL (130-400); RED BLOOD COUNT 5.77 10*6/uL (4.50-5.90); RED CELL DISTRI WIDTH 13.2 % (0-14.5); WHITE BLOOD COUNT 9.9 10*3/uL (4.8-10.8)
[2018-02-07 13:32] LABS: ALKALINE PHOSPHATASE 100 U/L (45-117); BUN 13 mg/dl (7-24); CHLORIDE 105 mmol/L (98-107); POTASSIUM 3.8 mmol/L (3.5-5.1); SGOT/AST 26 IU/L (3-35); SGPT/ALT 64 U/L (12-78); SODIUM 139 mmol/L (136-145); TOTAL PROTEIN 7.6 gm/dL (6.4-8.2)
== END | disposition home or self-care (01) ==
LOC: LAB 12:25
PROVIDERS: Urology
DX: Z01.818 Encounter for other preprocedural examination (principal)

== ENCOUNTER → 2018-02-27 | Outpatient (CLI) | payer OTHER | END | disposition home or self-care (01) | LOC: RESCLI 03:19 | DX: Z09 Encounter for follow-up examination after completed treatment for conditions other than malignant neoplasm (principal); C64.2 Malignant neoplasm of left kidney, except renal pelvis; Q85.8 Other phakomatoses, not elsewhere classified; D49.6 Neoplasm of unspecified behavior of brain; K59.03 Drug induced constipation; K21.9 Gastro-esophageal reflux disease without esophagitis; M62.838 Other muscle spasm; I10 Essential (primary) hypertension; L23.9 Allergic contact dermatitis, unspecified cause; G47.01 Insomnia due to medical condition; J45.20 Mild intermittent asthma, uncomplicated; F17.200 Nicotine dependence, unspecified, uncomplicated; Z79.899 Other long term (current) drug therapy; Z88.8 Allergy status to other drugs, medicaments and biological substances ==

== ENCOUNTER → 2018-04-03 | Outpatient (CLI) | payer OTHER | END | disposition home or self-care (01) | LOC: RESCLI 00:58 | DX: I10 Essential (primary) hypertension (principal); C64.2 Malignant neoplasm of left kidney, except renal pelvis; K59.03 Drug induced constipation; K21.9 Gastro-esophageal reflux disease without esophagitis; M62.838 Other muscle spasm; L23.9 Allergic contact dermatitis, unspecified cause; G47.01 Insomnia due to medical condition; J45.20 Mild intermittent asthma, uncomplicated; D49.6 Neoplasm of unspecified behavior of brain; J01.00 Acute maxillary sinusitis, unspecified; F17.200 Nicotine dependence, unspecified, uncomplicated; Z79.899 Other long term (current) drug therapy; Z88.8 Allergy status to other drugs, medicaments and biological substances ==

== ENCOUNTER → 2018-06-12 | Outpatient (CLI) | payer OTHER ==
[2018-06-12 15:34] LABS: URINE AMPHETAMINES > 1000 (1000ng/ml); URINE BARBITURATES < 200 (200ng/ml); URINE BENZODIAZEPINES < 200 (200ng/ml); URINE CANNABINOIDS (THC) < 50 (50ng/ml); URINE COCAINE < 300 (300ng/ml); URINE METHADONE < 300 (300ng/ml); URINE OPIATES < 300 (300ng/ml)
[2018-06-12 15:47] LABS: URINE PHENCYCLIDINE < 25 (25ng/ml)
== END | disposition home or self-care (01) ==
LOC: RESCLI 02:37
PROVIDERS: Internal Medicine
DX: K21.9 Gastro-esophageal reflux disease without esophagitis (principal); I10 Essential (primary) hypertension; D49.6 Neoplasm of unspecified behavior of brain; C64.2 Malignant neoplasm of left kidney, except renal pelvis; M62.838 Other muscle spasm; F17.200 Nicotine dependence, unspecified, uncomplicated; Z79.899 Other long term (current) drug therapy; Z88.8 Allergy status to other drugs, medicaments and biological substances

== ENCOUNTER → 2018-08-21 | Outpatient (CLI) | payer OTHER ==
[2018-08-21 11:48] LABS: URINE AMPHETAMINES > 1000 (1000ng/ml); URINE BARBITURATES < 200 (200ng/ml); URINE BENZODIAZEPINES < 200 (200ng/ml); URINE CANNABINOIDS (THC) < 50 (50ng/ml); URINE COCAINE < 300 (300ng/ml); URINE METHADONE < 300 (300ng/ml); URINE OPIATES < 300 (300ng/ml)
[2018-08-21 11:50] LABS: URINE PHENCYCLIDINE < 25 (25ng/ml)
== END | disposition home or self-care (01) ==
LOC: RESCLI 08:22
PROVIDERS: Internal Medicine
DX: C64.2 Malignant neoplasm of left kidney, except renal pelvis (principal); I10 Essential (primary) hypertension; M62.838 Other muscle spasm; D49.6 Neoplasm of unspecified behavior of brain; K21.9 Gastro-esophageal reflux disease without esophagitis; R00.0 Tachycardia, unspecified; E66.9 Obesity, unspecified; F15.10 Other stimulant abuse, uncomplicated; F17.200 Nicotine dependence, unspecified, uncomplicated; J45.909 Unspecified asthma, uncomplicated; S02.5XXA Fracture of tooth (traumatic), initial encounter for closed fracture; Z79.899 Other long term (current) drug therapy; Z88.8 Allergy status to other drugs, medicaments and biological substances; X58.XXXA Exposure to other specified factors, initial encounter; Y93.89 Activity, other specified; Y92.89 Other specified places as the place of occurrence of the external cause; Y99.8 Other external cause status

== ENCOUNTER → 2018-09-25 | Outpatient (CLI) | payer OTHER | END | disposition home or self-care (01) | LOC: RESCLI 01:03 | DX: C64.2 Malignant neoplasm of left kidney, except renal pelvis (principal); D49.6 Neoplasm of unspecified behavior of brain; I10 Essential (primary) hypertension; K21.9 Gastro-esophageal reflux disease without esophagitis; R00.0 Tachycardia, unspecified; F17.200 Nicotine dependence, unspecified, uncomplicated; J45.909 Unspecified asthma, uncomplicated; Z79.899 Other long term (current) drug therapy ==

== ENCOUNTER → 2018-10-30 | Outpatient (CLI) | payer OTHER | END | disposition home or self-care (01) | LOC: RESCLI 00:23 | DX: K21.9 Gastro-esophageal reflux disease without esophagitis (principal); I10 Essential (primary) hypertension; C64.2 Malignant neoplasm of left kidney, except renal pelvis; D49.6 Neoplasm of unspecified behavior of brain; Q85.8 Other phakomatoses, not elsewhere classified; E66.9 Obesity, unspecified; F17.200 Nicotine dependence, unspecified, uncomplicated; Z79.899 Other long term (current) drug therapy; Z88.8 Allergy status to other drugs, medicaments and biological substances ==

== ENCOUNTER → 2018-12-05 | Outpatient (CLI) | payer OTHER | END | disposition home or self-care (01) | LOC: RESCLI 01:05 | DX: K21.9 Gastro-esophageal reflux disease without esophagitis (principal); I10 Essential (primary) hypertension; C64.2 Malignant neoplasm of left kidney, except renal pelvis; D49.6 Neoplasm of unspecified behavior of brain; E66.9 Obesity, unspecified; M54.2 Cervicalgia; F17.200 Nicotine dependence, unspecified, uncomplicated; Q85.8 Other phakomatoses, not elsewhere classified; Z79.899 Other long term (current) drug therapy; Z88.8 Allergy status to other drugs, medicaments and biological substances ==

== ENCOUNTER → 2019-01-11 | Outpatient (CLI) | payer OTHER | END | disposition home or self-care (01) | LOC: RESCLI 10:16 | DX: I10 Essential (primary) hypertension (principal); J02.9 Acute pharyngitis, unspecified; K21.9 Gastro-esophageal reflux disease without esophagitis; C64.2 Malignant neoplasm of left kidney, except renal pelvis; D49.6 Neoplasm of unspecified behavior of brain; E66.9 Obesity, unspecified; M54.2 Cervicalgia; J02.0 Streptococcal pharyngitis; Z68.34 Body mass index [BMI] 34.0-34.9, adult; Z79.899 Other long term (current) drug therapy; Z87.891 Personal history of nicotine dependence ==

== ENCOUNTER → 2019-03-26 | Outpatient (CLI) | payer OTHER | END | disposition home or self-care (01) | LOC: RESCLI 02:55 | DX: C64.2 Malignant neoplasm of left kidney, except renal pelvis (principal); I10 Essential (primary) hypertension; D49.6 Neoplasm of unspecified behavior of brain; K21.9 Gastro-esophageal reflux disease without esophagitis; E66.9 Obesity, unspecified; Z68.34 Body mass index [BMI] 34.0-34.9, adult; Q85.8 Other phakomatoses, not elsewhere classified; J45.909 Unspecified asthma, uncomplicated; Z88.8 Allergy status to other drugs, medicaments and biological substances; Z79.899 Other long term (current) drug therapy ==

== ENCOUNTER → 2019-04-23 | Outpatient (CLI) | payer OTHER | END | disposition home or self-care (01) | LOC: RESCLI 01:27 | DX: C64.2 Malignant neoplasm of left kidney, except renal pelvis (principal); I10 Essential (primary) hypertension; D49.6 Neoplasm of unspecified behavior of brain; K21.9 Gastro-esophageal reflux disease without esophagitis; Q85.8 Other phakomatoses, not elsewhere classified; E66.9 Obesity, unspecified; Z79.899 Other long term (current) drug therapy; F17.200 Nicotine dependence, unspecified, uncomplicated ==

== ENCOUNTER → 2019-07-05 | Outpatient (CLI) | payer OTHER | END | disposition home or self-care (01) | LOC: RESCLI 09:52 | DX: C64.2 Malignant neoplasm of left kidney, except renal pelvis (principal); K21.9 Gastro-esophageal reflux disease without esophagitis; D49.6 Neoplasm of unspecified behavior of brain; I10 Essential (primary) hypertension; Q85.8 Other phakomatoses, not elsewhere classified; Z79.899 Other long term (current) drug therapy ==

== ENCOUNTER → 2019-12-11 | Outpatient (CLI) | payer MEDICARE, MEDICAID | END | disposition home or self-care (01) | LOC: RESCLI 08:55 | DX: D49.6 Neoplasm of unspecified behavior of brain (principal); G47.00 Insomnia, unspecified; I10 Essential (primary) hypertension; Q85.8 Other phakomatoses, not elsewhere classified; C64.2 Malignant neoplasm of left kidney, except renal pelvis; K21.9 Gastro-esophageal reflux disease without esophagitis; Z79.899 Other long term (current) drug therapy; Z98.890 Other specified postprocedural states; F17.200 Nicotine dependence, unspecified, uncomplicated ==

== ENCOUNTER → 2020-02-21 | Outpatient (CLI) | payer MEDICARE, MEDICAID | END | disposition home or self-care (01) | LOC: RESCLI 05:02 | PROVIDERS: ATTEND Family Medicine | DX: D46.9 Myelodysplastic syndrome, unspecified (principal); Q85.8 Other phakomatoses, not elsewhere classified; C64.2 Malignant neoplasm of left kidney, except renal pelvis; I10 Essential (primary) hypertension; K21.9 Gastro-esophageal reflux disease without esophagitis; G47.00 Insomnia, unspecified; R00.0 Tachycardia, unspecified; J45.20 Mild intermittent asthma, uncomplicated; F17.210 Nicotine dependence, cigarettes, uncomplicated; Z79.899 Other long term (current) drug therapy; Z98.890 Other specified postprocedural states ==

== ENCOUNTER 2020-05-04 09:03 | Emergency (ER) | payer MEDICARE, MEDICAID ==
[~2020-05-04] VITALS: Ht 170.1 cm; Wt 86.2 kg
[~2020-05-04 09:03] MED LIST changes: -LIPITOR80 MG PO; -NORCO 5-325 TA1 EACH PO; -PREDNISONE10 MG PO; -PREDNISONE20 M1 PO; -ROBAXIN-750750 MG PO
[2020-05-04 09:34] VITALS: BP 155/93
[2020-05-04 09:51] LABS: HEMATOCRIT 43.7 % (42.0-52.0); MEAN CELL VOLUME 85.5 fl (80.0-94.0); MEAN PLATELET VOLUME 10.2 fl (9.6-12.3); PLATELET COUNT AUTOMATED 275 10*3/uL (130-400); RED BLOOD COUNT 5.11 10*6/uL (4.50-5.90); RED CELL DISTRI WIDTH 12.5 % (0-14.5)
[2020-05-04 10:07] LABS: CHLORIDE 95 mmol/L (98-107); CREATININE 0.93 mg/dL (0.70-1.30); LIPASE 16 U/L (73-393); SODIUM 130 mmol/L (136-145)
[2020-05-04 10:19] LABS: MEAN CORPUSCULAR HGB 29.4 pg (27.0-31.0); MEAN CORPUSCULAR HGB CONC 34.3 g/dl (33.0-37.0)
[2020-05-04 10:20] LABS: WHITE BLOOD COUNT 8.2 10*3/uL (4.8-10.8)
[2020-05-04 10:25] LABS: BASOPHILS 2 % (0-1); PLATELET SUFFICIENCY NORMAL (NORMAL); TOTAL CELLS COUNTED 100 #CELLS
[2020-05-04 10:27] LABS: ACT PARTIAL THROMBO TIME 25.1 SECONDS (20.0-32.1); INTERNATIONAL NORM RATIO 0.9 (2.0-3.5)
[2020-05-04 11:20] LABS: ALBUMIN 3.3 gm/dl (3.1-4.5); ALKALINE PHOSPHATASE 113 U/L (45-117); BUN 13 mg/dl (7-24); NT-proBNP < 5.00 pg/mL (0-125); TOTAL PROTEIN 7.8 gm/dL (6.4-8.2); TROPONIN I < 0.015 ng/ml (<0.045)
[2020-05-04 11:21] LABS: POTASSIUM 5.6 mmol/L (3.5-5.1)
[2020-05-04 11:39] LABS: SGOT/AST 116 IU/L (3-35); SGPT/ALT 73 U/L (12-78)
== END 2020-05-04 12:25 | disposition home or self-care (01) ==
LOC: ED 09:03
PROVIDERS: Emergency Medicine
DX: R07.89 Other chest pain (principal); E11.65 Type 2 diabetes mellitus with hyperglycemia; Z79.899 Other long term (current) drug therapy; Z87.891 Personal history of nicotine dependence

== ENCOUNTER → 2020-05-04 | Outpatient (CLI) | payer MEDICARE, MEDICAID ==
[~2020-05-04] MED LIST changes: +LIPITOR80 MG PO; +NORCO 5-325 TA1 EACH PO; +PREDNISONE10 MG PO; +PREDNISONE20 M1 PO; +ROBAXIN-750750 MG PO
== END | disposition home or self-care (01) ==
LOC: LAB 13:01
PROVIDERS: ATTEND Internal Medicine Nephrology
DX: E11.9 Type 2 diabetes mellitus without complications (principal)

== ENCOUNTER 2020-05-13 08:01 | Emergency (ER) | payer MEDICARE, MEDICAID ==
[~2020-05-13] VITALS: Wt 95.3 kg
[2020-05-13 08:05] VITALS: BP 159/90
[2020-05-13 09:31] LABS: HEMATOCRIT 43.4 % (42.0-52.0); MEAN CELL VOLUME 85.4 fl (80.0-94.0); MEAN PLATELET VOLUME 10.2 fl (9.6-12.3); PLATELET COUNT AUTOMATED 250 10*3/uL (130-400); RED BLOOD COUNT 5.08 10*6/uL (4.50-5.90); RED CELL DISTRI WIDTH 12.2 % (0-14.5); WHITE BLOOD COUNT 9.6 10*3/uL (4.8-10.8)
[2020-05-13 09:59] LABS: INTERNATIONAL NORM RATIO 0.9 (2.0-3.5)
[2020-05-13 10:00] LABS: MEAN CORPUSCULAR HGB 29.3 pg (27.0-31.0); MEAN CORPUSCULAR HGB CONC 34.3 g/dl (33.0-37.0)
[2020-05-13 10:01] LABS: ACT PARTIAL THROMBO TIME 26.5 SECONDS (20.0-32.1)
[2020-05-13 10:08] LABS: PLATELET SUFFICIENCY NORMAL (NORMAL); TOTAL CELLS COUNTED 100 #CELLS
[2020-05-13 10:16] LABS: ALBUMIN 3.7 gm/dl (3.1-4.5); BUN 15 mg/dl (7-24); CHLORIDE 97 mmol/L (98-107); CREATININE 1.22 mg/dL (0.70-1.30); SGOT/AST 74 IU/L (3-35); SGPT/ALT 81 U/L (12-78); SODIUM 128 mmol/L (136-145)
[2020-05-13 10:17] LABS: ALKALINE PHOSPHATASE 114 U/L (45-117)
[2020-05-13 10:21] LABS: POTASSIUM 6.1 mmol/L (3.5-5.1); TROPONIN I < 0.015 ng/ml (<0.045)
[2020-05-13] MEDS ORDERED: PREDNISONE10 MG PO (10:21)
[2020-05-13] MEDS ORDERED: NORCO 5-325 TA1 EACH PO (10:21)
[2020-05-13] MEDS ORDERED: LIPITOR80 MG PO (10:26)
[2020-05-14] MEDS ORDERED: ROBAXIN-750750 MG PO (19:20)
[2020-05-14] MEDS ORDERED: PREDNISONE20 M1 PO ×2 (19:20→19:46)
== END 2020-05-13 10:56 | disposition home or self-care (01) ==
LOC: ED 08:01
PROVIDERS: Family Medicine
DX: M54.2 Cervicalgia (principal); R79.1 Abnormal coagulation profile; Z79.899 Other long term (current) drug therapy; Z87.891 Personal history of nicotine dependence

== ENCOUNTER 2020-05-14 18:25 | Emergency (ER) | payer MEDICARE, MEDICAID ==
[~2020-05-14] VITALS: Ht 170.1 cm; Wt 95.3 kg
[~2020-05-14 18:25] MED LIST changes: +LIPITOR80 MG PO; +NORCO 5-325 TA1 EACH PO; +PREDNISONE10 MG PO
[2020-05-14 18:31] VITALS: BP 154/82
[2020-05-14] MEDS ORDERED: PREDNISONE20 M1 PO ×2 (19:20→19:46)
[2020-05-14] MEDS ORDERED: ROBAXIN-750750 MG PO (19:20)
== END 2020-05-14 19:52 | disposition home or self-care (01) ==
LOC: ED 18:25
DX: M54.12 Radiculopathy, cervical region (principal); F17.200 Nicotine dependence, unspecified, uncomplicated; Z79.899 Other long term (current) drug therapy

== ENCOUNTER → 2020-05-21 | Outpatient (CLI) | payer MEDICARE, MEDICAID ==
[~2020-05-21] MED LIST changes: +PREDNISONE20 M1 PO; +ROBAXIN-750750 MG PO
== END | disposition home or self-care (01) ==
LOC: RESCLI 01:06
PROVIDERS: ATTEND Internal Medicine Nephrology
DX: Q85.8 Other phakomatoses, not elsewhere classified (principal); G47.00 Insomnia, unspecified; R20.2 Paresthesia of skin; I10 Essential (primary) hypertension; J45.20 Mild intermittent asthma, uncomplicated; K21.9 Gastro-esophageal reflux disease without esophagitis; E11.9 Type 2 diabetes mellitus without complications; M54.2 Cervicalgia; Z79.899 Other long term (current) drug therapy

== ENCOUNTER → 2020-06-04 | Outpatient (CLI) | payer MEDICARE, MEDICAID | END | disposition home or self-care (01) | LOC: RESCLI 08:29 | PROVIDERS: ATTEND Student in an Organized Health Care Education/Training Program | DX: D49.6 Neoplasm of unspecified behavior of brain (principal); H53.8 Other visual disturbances; R10.9 Unspecified abdominal pain; M25.519 Pain in unspecified shoulder; C64.2 Malignant neoplasm of left kidney, except renal pelvis; K85.90 Acute pancreatitis without necrosis or infection, unspecified; Q85.8 Other phakomatoses, not elsewhere classified; I10 Essential (primary) hypertension; K21.9 Gastro-esophageal reflux disease without esophagitis; G47.00 Insomnia, unspecified; R00.0 Tachycardia, unspecified; J45.20 Mild intermittent asthma, uncomplicated; Z79.899 Other long term (current) drug therapy ==

== ENCOUNTER → 2020-06-15 | Outpatient (CLI) | payer MEDICARE, MEDICAID | END | disposition home or self-care (01) | LOC: RESCLI 06:58 | PROVIDERS: ATTEND Internal Medicine Nephrology | DX: E11.9 Type 2 diabetes mellitus without complications (principal); I10 Essential (primary) hypertension; J45.20 Mild intermittent asthma, uncomplicated; E55.9 Vitamin D deficiency, unspecified; K08.89 Other specified disorders of teeth and supporting structures; K21.9 Gastro-esophageal reflux disease without esophagitis; G62.9 Polyneuropathy, unspecified; G47.00 Insomnia, unspecified; Q85.8 Other phakomatoses, not elsewhere classified; Z79.84 Long term (current) use of oral hypoglycemic drugs; Z79.899 Other long term (current) drug therapy; F17.210 Nicotine dependence, cigarettes, uncomplicated ==

== ENCOUNTER → 2020-06-26 | Outpatient (CLI) | payer MEDICARE, MEDICAID ==
[2020-06-26 10:10] LABS: BASO # 0.1 10*3/uL (0.0-0.1); BASO % 0.6 % (0.0-1.0); EOS # 0.8 10*3/uL (0.0-0.4); EOS % 7.9 % (1.0-4.0); HEMATOCRIT 41.1 % (42.0-52.0); LYMPH # 2.2 10*3/uL (1.3-4.4); LYMPH % 22.8 % (27.0-41.0); MEAN CELL VOLUME 87.3 fl (80.0-94.0); MEAN CORPUSCULAR HGB 28.9 pg (27.0-31.0); MEAN CORPUSCULAR HGB CONC 33.1 g/dl (33.0-37.0); MEAN PLATELET VOLUME 9.5 fl (9.6-12.3); MONO # 0.6 10*3/uL (0.1-1.0); MONO % 5.9 % (3.0-9.0); NEUT # 6.1 10*3/uL (2.3-7.9); NEUT % 62.2 % (47.0-73.0); PLATELET COUNT AUTOMATED 270 10*3/uL (130-400); RED BLOOD COUNT 4.71 10*6/uL (4.50-5.90); RED CELL DISTRI WIDTH 14.2 % (0-14.5); WHITE BLOOD COUNT 9.8 10*3/uL (4.8-10.8)
[2020-06-26 10:29] LABS: ALBUMIN 3.6 gm/dl (3.1-4.5); ALKALINE PHOSPHATASE 147 U/L (45-117); BUN 9 mg/dl (7-24); CHLORIDE 104 mmol/L (98-107); CHOLESTEROL 122 mg/dL (<200); CREATININE 0.84 mg/dL (0.70-1.30); HDL CHOLESTEROL 26 mg/dl (40-60); LIPASE 97 U/L (73-393); SGOT/AST 32 IU/L (3-35); SGPT/ALT 102 U/L (12-78); SODIUM 138 mmol/L (136-145); TOTAL PROTEIN 7.6 gm/dL (6.4-8.2); TRIGLYCERIDES 432 mg/dl (<150)
[2020-06-26 11:01] LABS: VITAMIN D, 25-HYDROXY 9.6 ng/mL (30-100)
== END | disposition home or self-care (01) ==
LOC: RESCLI 09:34
PROVIDERS: Social Worker Clinical; ATTEND Internal Medicine
DX: K04.7 Periapical abscess without sinus (principal); Q85.8 Other phakomatoses, not elsewhere classified; D49.6 Neoplasm of unspecified behavior of brain; I10 Essential (primary) hypertension; K21.9 Gastro-esophageal reflux disease without esophagitis; C64.2 Malignant neoplasm of left kidney, except renal pelvis; G47.00 Insomnia, unspecified; J45.20 Mild intermittent asthma, uncomplicated; E11.9 Type 2 diabetes mellitus without complications; G62.9 Polyneuropathy, unspecified; R20.2 Paresthesia of skin; E55.9 Vitamin D deficiency, unspecified; F17.200 Nicotine dependence, unspecified, uncomplicated; Z79.899 Other long term (current) drug therapy; Z98.890 Other specified postprocedural states

== ENCOUNTER → 2020-10-08 | Outpatient (CLI) | payer MEDICARE, MEDICAID | END | disposition home or self-care (01) | LOC: RESCLI 01:57 | PROVIDERS: ATTEND Internal Medicine | DX: Q85.8 Other phakomatoses, not elsewhere classified (principal); D49.6 Neoplasm of unspecified behavior of brain; C64.2 Malignant neoplasm of left kidney, except renal pelvis; I10 Essential (primary) hypertension; K21.9 Gastro-esophageal reflux disease without esophagitis; J45.20 Mild intermittent asthma, uncomplicated; E11.9 Type 2 diabetes mellitus without complications; G62.9 Polyneuropathy, unspecified; R20.2 Paresthesia of skin; E55.9 Vitamin D deficiency, unspecified; E78.2 Mixed hyperlipidemia; L23.7 Allergic contact dermatitis due to plants, except food; G89.29 Other chronic pain; G47.00 Insomnia, unspecified; Z72.0 Tobacco use; Z79.899 Other long term (current) drug therapy; Z98.890 Other specified postprocedural states ==

== ENCOUNTER → 2020-12-03 | Outpatient (CLI) | payer MEDICARE, MEDICAID | END | disposition home or self-care (01) | LOC: RESCLI 00:59 | PROVIDERS: ATTEND Internal Medicine | DX: Q85.8 Other phakomatoses, not elsewhere classified (principal); K21.9 Gastro-esophageal reflux disease without esophagitis; E11.9 Type 2 diabetes mellitus without complications; E55.9 Vitamin D deficiency, unspecified; E78.2 Mixed hyperlipidemia; I10 Essential (primary) hypertension; J45.20 Mild intermittent asthma, uncomplicated; G62.9 Polyneuropathy, unspecified; G89.29 Other chronic pain; R21 Rash and other nonspecific skin eruption; Z79.899 Other long term (current) drug therapy; Z98.890 Other specified postprocedural states ==

== ENCOUNTER → 2021-03-24 | Outpatient (CLI) | payer MEDICARE, MEDICAID | END | disposition home or self-care (01) | LOC: RESCLI 00:44 | PROVIDERS: ATTEND Internal Medicine Nephrology | DX: R00.0 Tachycardia, unspecified (principal); Q85.8 Other phakomatoses, not elsewhere classified; E11.9 Type 2 diabetes mellitus without complications; J45.20 Mild intermittent asthma, uncomplicated; G47.00 Insomnia, unspecified; E78.2 Mixed hyperlipidemia; G62.9 Polyneuropathy, unspecified; F17.210 Nicotine dependence, cigarettes, uncomplicated; I10 Essential (primary) hypertension; K21.9 Gastro-esophageal reflux disease without esophagitis; Z79.899 Other long term (current) drug therapy ==

== ENCOUNTER → 2021-11-18 | Outpatient (CLI) | payer MEDICARE, MEDICAID | END | disposition home or self-care (01) | LOC: RESCLI 11-16 17:49 | PROVIDERS: ATTEND Family Medicine | DX: Q85.8 Other phakomatoses, not elsewhere classified (principal); D49.6 Neoplasm of unspecified behavior of brain; I10 Essential (primary) hypertension; K21.9 Gastro-esophageal reflux disease without esophagitis; E88.81 Metabolic syndrome and other insulin resistance; J45.909 Unspecified asthma, uncomplicated; F41.9 Anxiety disorder, unspecified; Z79.899 Other long term (current) drug therapy ==